=== PATIENT | female | born 1980 | race African-American/Black ===

== ENCOUNTER 2016-08-28 18:00 | Emergency (ER) | payer OTHER ==
[2016-08-28 17:34] LABS: INFLUENZA A NEG (NEG); INFLUENZA B NEG (NEG)
[~2016-08-28 18:00] MED LIST: BENTYL10 MG PO
== END 2016-08-28 18:55 | disposition home or self-care (01) ==
LOC: CED 18:00
PROVIDERS: Student in an Organized Health Care Education/Training Program
DX: J11.1 Influenza due to unidentified influenza virus with other respiratory manifestations (principal); Z88.8 Allergy status to other drugs, medicaments and biological substances; Z87.891 Personal history of nicotine dependence
CPT/HCPCS: 82947; 87804; 99283